=== PATIENT | female | born 1980 | race Caucasian/White ===

== ENCOUNTER 2019-03-18 09:00 | Emergency (ER) | payer BC ==
[~2019-03-18] VITALS: Ht 162.6 cm; Wt 72.1 kg
[2019-03-18 09:22] VITALS: Ht 162.6 cm; Wt 72.1 kg
[2019-03-18 10:42] LABS: BASOPHIL % 1.4 % (0-2); PLATELET COUNT 345 x10^3mcL (130-400); RED CELL DISTRIBUTION WIDTH 11.8 % (11.5-14.5)
[2019-03-18 11:10] VITALS: BP 144/96
== END 2019-03-18 11:54 | disposition home or self-care (01) ==
LOC: ED 09:00
PROVIDERS: Emergency Medicine
DX: O20.0 Threatened abortion (principal); O16.1 Unspecified maternal hypertension, first trimester; O99.611 Diseases of the digestive system complicating pregnancy, first trimester; Z3A.01 Less than 8 weeks gestation of pregnancy; Z87.19 Personal history of other diseases of the digestive system
CPT/HCPCS: 36415